=== PATIENT | female | born 1985 | race Two or more races ===

== ENCOUNTER 2025-09-04 08:25 | Emergency (ER) | payer OTHER ==
[~2025-09-04] VITALS: Ht 160 cm; Wt 51.3 kg
[2025-09-04 09:07] VITALS: BP 100/65; O2SAT 100
[2025-09-04] MEDS ORDERED: KETOROLAC TROMETHAMINE 30 MG VIAL IV ONE (10:00)
[2025-09-04 12:05] LABS: BASO % 0.3 % (0.1-1.2); EOS # 0.03 (0.04-0.54); EOS % 0.3 % (0.7-7.0); LYMPH # 2.03 (1.18-3.74); LYMPH % 23.0 % (19.3-53.1); MEAN PLATELET VOLUME 10.60 fl (9.4-12.4); MONO # 1.04 (0.24-0.82); MONO % 11.8 % (4.7-12.5); NEUT # 5.68 (1.56-6.13); NEUT % 64.4 % (34.0-71.1); RED CELL DISTRIBUTION WIDTH 15.4 % (11.6-14.4)
== END 2025-09-04 18:10 | disposition home or self-care (01) ==
LOC: ER 08:25
PROVIDERS: General Practice
DX: S92.002A Unspecified fracture of left calcaneus, initial encounter for closed fracture (principal); W19.XXXA Unspecified fall, initial encounter; Y93.89 Activity, other specified; Y92.828 Other wilderness area as the place of occurrence of the external cause; Y99.8 Other external cause status; G89.11 Acute pain due to trauma; M79.672 Pain in left foot